=== PATIENT | male | born 1990 | race African-American/Black ===

== ENCOUNTER 2018-01-02 11:38 | Emergency (ER) | payer OTHER ==
[~2018-01-02] VITALS: Ht 170.2 cm; Wt 78.0 kg
[2018-01-02 11:43] VITALS: BP 127/70
== END 2018-01-02 13:19 | disposition home or self-care (01) ==
LOC: ER 11:38
DX: K11.20 Sialoadenitis, unspecified (principal)
CPT/HCPCS: 99282